=== PATIENT | female | born 1965 | race Caucasian/White ===

== ENCOUNTER 2022-08-30 08:56 | Emergency (ER) | payer OTHER ==
[~2022-08-30] VITALS: Ht 152.4 cm; Wt 136.1 kg
[~2022-08-30 08:56] MED LIST: ANTIDEPRESSANT; BLOOD PRESSURE PILL; CENESTIN1.25 MG PO; CLONAZEPAM1 MG PO; CYTOMEL5 MCG PO; ESCITALOPRAM OX10 MG PO; FENOFIBRATE160 MG PO; GUAIATUSSIN AC10 ML PO; KLONOPIN1 MG PO; LISINOPRIL-HCT1 EACH PO; LOMOTIL TABLET1 EACH PO; NUCYNTA50 MG PO; OMEGA 3-6-9 CO400 MG PO; PROVENTIL HFA6.7 GM INH; SYNTHROID200 MCG PO; VENLAFAXINE HC150 M1 PO; ZITHROMAX250 MG PO
== END 2022-08-30 10:11 | disposition home or self-care (01) ==
LOC: ED 08:56
DX: S40.011A Contusion of right shoulder, initial encounter (principal); V43.52XA Car driver injured in collision with other type car in traffic accident, initial encounter; J45.909 Unspecified asthma, uncomplicated; I10 Essential (primary) hypertension; E78.5 Hyperlipidemia, unspecified; Z88.5 Allergy status to narcotic agent; Z79.899 Other long term (current) drug therapy
CPT/HCPCS: 96372; 99284; A9270; J1170